=== PATIENT | female | born 1955 | race Caucasian/White ===

== ENCOUNTER 2016-06-29 11:10 | Day surgery (SDC) | payer OTHER ==
[~2016-06-29] VITALS: Ht 157.5 cm; Wt 86.3 kg
[~2016-06-29 11:10] MED LIST: CLON.5 PO; IBUP-1547 PO; LEVO100T13 PO; OMEP20 PO; PARO20TA24 PO; SALBUTAMOL IH; SODIUM CHLORIDE 0.9% 1,000 ML IV ONE
[2016-06-29] MEDS ORDERED: SODIUM CHLORIDE 0.9% 1,000 ML IV ONE (11:15)
[2016-06-29] MEDS ORDERED: MIDAZOLAM HCL 5 MG/ML VIAL ONE (12:50)
[2016-06-29] MEDS ORDERED: FentaNYL CITRATE-PF 100 MCG/2 ML VIAL ONE (12:50)
== END 2016-06-29 15:50 | disposition home or self-care (01) ==
LOC: SURGERY 11:10
PROVIDERS: ATTEND Internal Medicine Gastroenterology
DX: K29.70 Gastritis, unspecified, without bleeding (principal); K44.9 Diaphragmatic hernia without obstruction or gangrene; K22.10 Ulcer of esophagus without bleeding; K57.90 Diverticulosis of intestine, part unspecified, without perforation or abscess without bleeding; J45.909 Unspecified asthma, uncomplicated; M19.90 Unspecified osteoarthritis, unspecified site; M25.569 Pain in unspecified knee; E66.9 Obesity, unspecified; Z88.8 Allergy status to other drugs, medicaments and biological substances; Z72.89 Other problems related to lifestyle; Z90.710 Acquired absence of both cervix and uterus; Z90.49 Acquired absence of other specified parts of digestive tract
CPT/HCPCS: 43239; J2250; J3010; J7030; 88305; 88312